=== PATIENT | female | born 1950 | race Caucasian/White ===

== ENCOUNTER → 2019-06-26 | Outpatient (CLI) | payer MEDICARE, BC ==
[~2019-06-26] MED LIST: ASA81BEC PO; CATAPRES0.1 MG PO; FENOFIBRATE67 MG PO; GABAPENTIN600 M1 PO; LEVO-T100 MCG PO; NORCO 5-325 TA1 EAC1 PO; PROAIR HFA8.5 GM INH; ZESTRIL20 MG PO
== END ==
LOC: M.LAB 08:28
PROVIDERS: ATTEND Surgery
DX: Z01.812 Encounter for preprocedural laboratory examination (principal)

== ENCOUNTER → 2019-07-02 | Day surgery (SDC) | payer MEDICARE, BC ==
[2019-07-02 08:38] LABS: HEMATOCRIT 35.5 % (37.0-47.0); MCH 27.7 pg (26.0-34.0); MCHC 33.9 g/dL (28.0-37.0); MCV 81.7 fL (80.0-100.0); MPV 8.3 fl. (7.2-11.1); RBC 4.35 mil/uL (4.20-5.00); WBC 4.8 thou/uL (4.0-11.0)
[2019-07-02 08:55] LABS: CALCIUM 8.2 mg/dL (8.5-10.1); CREATININE 1.1 mg/dL (0.6-1.3); POTASSIUM 4.3 mmol/L (3.5-5.1)
--- NOTE | 2019-07-02 14:13 | EKG ---
[place] [address] ELECTROCARDIOGRAM REPORT Name: INDIA LINDSEY Room: [facility]#: [id number] Admission: 07/02/19 Attend Phys: Calvin Mc Discharge: Date of : 48 Date of Service: 07/02/1922 Report #: [id number] THIS REPORT FOR: //name// [facility] Test Date: 2019-07-02 Test Time: 08:22:53 Pat Name: INDIA CÉSAR Department: Room: Gender: F Government Instructor: : 1950 Requested By: Calvin Benz Order Number: [id number] Alejandra MD: Liam Peace Measurements Intervals Rush Rate: 72 P: 56 OK: 142 QRS: 40 QRSD: 98 T: 27 QT: 427 QTc: 468 Interpretive Statements Sinus rhythm Abnormal R-wave progression, early transition No previous ECG available for comparison Electronically Signed On 07-02-2019 14:11:26 CDT by Liam Peace [email or web address] <ELECTRONICALLY SIGNED> By: Liam ePace MD, [facility] 07/02/19 1411 1 1 Liam Peace MD, [facility] /EPI
--- NOTE | 2019-07-03 15:09 | PATH ---
[address] [address] PATHOLOGY RPT PROCEDURE Name: INDIA POSADA Room: [facility]#: [id number] Admission: 07/02/19 Date of : 48 Discharge: Report #: [id number] Path Case #: [id number] [facility] Accession Number: [id number] . 01 Material submitted: . gallbladder - GALLBLADDER . 02 Diagnosis: Gallbladder, "gallbladder, cholecystectomy": - Mild chronic cholecystitis. - There is no evidence of atypia or malignancy. . ([facility]:onelia; 07/03/2019) [facility] 07/03/2019 1137 Local . 02 Electronically signed: . Jaleel Cragi MD, Pathologist NPI- [id number] . 01 Gross description: . The specimen is received in formalin, labeled "India Posada, gallbladder" and consists of an intact gallbladder measuring 5.2 x 2.3 x 2.1 cm. The margin is inked. Opening reveals yellow green bile and no stones are present. The mucosa is orange brown and granular with a wall thickness of 0.1 cm. No gross lesions are identified. [employer] sections are submitted in A1. (Niki; 07/02/2019) JFQ/JFQ 07/02/2019 1723 Local . 02 Pathologist provided ICD-10: K81.1 . 02 CPT . 272831 Specimen Comment: A courtesy copy of this report has been sent to [phone] Specimen Comment: [phone], Specimen Comment: Report sent to ,DR HALL / DR LAMBERT Performed at: 01 [facility] [address] [id number] MD Davis Cedeno MD Phone: [phone] Performed at: [address] [id number] MD Jung Mcdonnell MD Phone: [phone]
--- NOTE | 2019-07-08 11:48 | OP ---
[facility] [address] [place] [address] OPERATIVE REPORT Name: INDIA LINDSEY Room: [facility]#: [id number] Admission: 07/02/19 Attend Phys: Calvin Benz Discharge: Date of : 48 Report #: [id number] THIS REPORT FOR: //name// cc: Elana Hoskins MD, K. Gay MD ~ THIS REPORT FOR: //name// CC: EMILIANA Hoskins DATE OF SERVICE: 07/02/2019 PREOPERATIVE DIAGNOSIS: Symptomatic cholelithiasis. POSTOPERATIVE DIAGNOSIS: Symptomatic cholelithiasis. OPERATION: Laparoscopic cholecystectomy. SURGEON: Calvin Benz MD ANESTHESIA: General. ESTIMATED BLOOD LOSS: Minimal. SPECIMEN: Gallbladder. DESCRIPTION OF PROCEDURE: After informed consent was obtained, the patient was brought to the operating room and placed supine. SCDs were placed and working, preoperative antibiotics were administered, general anesthesia was induced. The abdomen was prepped and draped in the usual sterile fashion. A 10 mm incision was made above the umbilicus. Fascia was incised and a trocar was placed. Pneumoperitoneum was established. Three right upper quadrant 5 mm ports were placed. Gallbladder was grasped at the fundus and retracted cephalad. Infundibulum was grasped and retracted laterally. I dissected out the cystic duct and cystic artery. The cystic plate was fully identified. Cystic duct and artery were clipped and ligated leaving 2 clips on the remaining duct and one on the remaining artery. Gallbladder was then taken off the liver bed with electrocautery. It was placed into an Endopouch and removed. Fascia was then closed with a [id number] 0 Vicryl. Skin was closed with 4-0 Monocryl. Incisions were sealed with Dermabond. COMPLICATIONS: [place] [address] OPERATIVE REPORT Name: INDIA LINDSEY Room: [facility]#: [id number] Admission: 07/02/19 Attend Phys: Calvin Benz Discharge: Date of : 48 Report #: [id number] DISPOSITION: The patient was taken to recovery in satisfactory condition. <ELECTRONICALLY SIGNED> By: Calvin Benz MD 07/08/19 1148 1121 1128Calvin Benz MD /nt
== END | disposition home or self-care (01) ==
LOC: M.SUR 07:52
PROVIDERS: Surgery
DX: K81.1 Chronic cholecystitis (principal); I10 Essential (primary) hypertension; E03.9 Hypothyroidism, unspecified; G47.30 Sleep apnea, unspecified; M79.7 Fibromyalgia; Z98.890 Other specified postprocedural states; Z79.899 Other long term (current) drug therapy; Z90.710 Acquired absence of both cervix and uterus; Z88.8 Allergy status to other drugs, medicaments and biological substances